=== PATIENT | male | born 1955 | race Asian ===

== ENCOUNTER 2016-07-06 06:12 | Day surgery (SDC) | payer BC ==
[~2016-07-06] VITALS: Ht 167.6 cm; Wt 66.9 kg
[2016-07-06 08:03] VITALS: Ht 167.6 cm; Wt 66.9 kg
[2016-07-06 08:13] VITALS: BP 135/83; PULSE 57; RESP 20
[2016-07-06] MEDS ORDERED: metoprolol tartrate PO (08:35)
[2016-07-06] MEDS ORDERED: atorvastatin PO (08:35)
[2016-07-06] MEDS ORDERED: losartan potassium PO (08:35)
[2016-07-06] MEDS ORDERED: isosorbide PO (08:35)
[2016-07-06] MEDS ORDERED: FENTAnyl 50 MCG/ML VIAL ONE (08:50)
[2016-07-06] MEDS ORDERED: MIDAZOLAM 1 MG/ML 2 ML INJ ONE ×2 (08:51)
--- NOTE | 2016-07-09 09:17 | GILP ---
DATE OF PROCEDURE: NAME OF PROCEDURE: Colonoscopy up to the cecum. PREOPERATIVE DIAGNOSIS: Screening colonoscopy to rule out colon polyps. POSTOPERATIVE DIAGNOSES: Minimal grade I internal and external hemorrhoids. No additional abnormal ities detected. DESCRIPTION OF PROCEDURE: After informed written consent was obtained the patient was asked to lie on the left lateral side. 3 mg of Versed and 75 mcg of fentanyl were given as intravenous anesthesi a. When the patient became somnolent the Olympus video colonoscope was introduced into the rectum and t he scope was advanced all the way to the cecum. The ileocecal valve and appendiceal openings were i dentified. No polyps, no carcinoma or any other abnormality were detected. On the way out retrofle xion was performed. Minimal internal hemorrhoids were noted. When the scope was withdrawn, minimal external hemorrhoids were noted, and the procedure was terminated. PLAN: Recommend a repeat colonoscopy in 10 years. Dictated By: FAUZIA BANERJEE/BLANCHE Conf#: [id number] DID#: [id number]
== END 2016-07-06 12:10 | disposition home or self-care (01) ==
LOC: GIL 06:12
PROVIDERS: ATTEND Internal Medicine Gastroenterology
DX: Z12.11 Encounter for screening for malignant neoplasm of colon (principal); K64.8 Other hemorrhoids; K64.4 Residual hemorrhoidal skin tags; I10 Essential (primary) hypertension; E11.9 Type 2 diabetes mellitus without complications
CPT/HCPCS: 45378; J2250; J3010